=== PATIENT | female | born 1955 | race Asian ===

== ENCOUNTER 2016-08-30 11:01 | Inpatient (IN) | payer MEDICAID ==
[~2016-08-30] VITALS: Ht 152.4 cm; Wt 50.5 kg
[2016-08-30 11:42] LABS: BASOPHIL % 0.3 % (0-2)
[2016-08-30 12:03] LABS: ALBUMIN 3.5 g/dL (3.4-5.0); BILIRUBIN TOTAL 0.4 mg/dL (0.20-1.00); CALCIUM 8.5 mg/dL (8.5-10.1); CARBON DIOXIDE 22.4 mmol/L (21-32); CREATININE SERUM 1.3 mg/dL (0.6-1.0); POTASSIUM SERUM 3.4 mmol/L (3.5-5.1); T4(THYROXINE) 9.1 ug/dL (4.7-13.3); TOTAL PROTEIN, SERUM 7.7 g/dL (6.4-8.2)
[2016-08-30 12:04] LABS: RED CELL DISTRIBUTION WIDTH 12.5 % (11.5-14.5)
[2016-08-30 12:43] LABS: PLATELET COUNT 222 x10^3mcL (130-400)
[2016-08-30 12:57] LABS: UA SPECIFIC GRAVITY <=1.005 (1.005-1.035); microscopic required? YES; urine erythrocyte TRACE (NEGATIVE)
[2016-08-30] MEDS ORDERED: JANUVIA100 M1 PO (13:10)
[2016-08-30] MEDS ORDERED: LIPI10 PO (13:10)
[2016-08-30] MEDS ORDERED: AMARYL4 MG PO (13:10)
[2016-08-30] MEDS ORDERED: LISINOPRIL10 MG PO (13:10)
[2016-08-30] MEDS ORDERED: ASPIR LOW81 MG PO (13:11)
[2016-08-30] MEDS ORDERED: CALCIUM 500 MG1 EAC1 PO (13:11)
[2016-08-30] MEDS ORDERED: CALCIUM PO (13:12)
[2016-08-30 14:44] LABS: CHOLESTEROL/HDL RATIO 1.9
[2016-08-30 14:52] VITALS: BP 119/75
[2016-08-30 14:53] LABS: T3 TOTAL 0.99 ng/mL
[2016-08-30 14:55] LABS: MAGNESIUM 1.8 mg/dL (1.8-2.4); PHOSPHOROUS 2.9 mg/dL (2.5-4.9)
[2016-08-30 15:03] LABS: AMPHETAMINE QUAL UR NONE DETECTED (NEG <=1000)
[2016-08-30 15:16] LABS: FREE T4 1.36 ng/dL (0.76-1.46); T4(THYROXINE) 8.7 ug/dL (4.7-13.3)
[2016-08-30 21:10] VITALS: BP 127/68
[2016-08-31 06:01] LABS: BASOPHIL % 0.5 % (0-2); PLATELET COUNT 191 x10^3mcL (130-400); RED CELL DISTRIBUTION WIDTH 12.4 % (11.5-14.5)
[2016-08-31 06:04] VITALS: BP 100/52
[2016-08-31 06:16] LABS: CALCIUM 8.1 mg/dL (8.5-10.1); CARBON DIOXIDE 21.6 mmol/L (21-32); CREATININE SERUM 1.3 mg/dL (0.6-1.0); MAGNESIUM 1.7 mg/dL (1.8-2.4); PHOSPHOROUS 2.7 mg/dL (2.5-4.9); POTASSIUM SERUM 4.3 mmol/L (3.5-5.1)
[2016-08-31 10:35] VITALS: BP 118/62
[2016-08-31 13:35] VITALS: BP 137/52
[2016-08-31 18:00] VITALS: BP 132/79
[2016-08-31 22:04] VITALS: BP 129/76
[2016-09-01 05:51] VITALS: BP 112/52
[2016-09-01 06:19] LABS: BASOPHIL % 0.7 % (0-2); PLATELET COUNT 190 x10^3mcL (130-400); RED CELL DISTRIBUTION WIDTH 12.6 % (11.5-14.5)
[2016-09-01 06:57] LABS: BILIRUBIN TOTAL 0.2 mg/dL (0.20-1.00); CALCIUM 8.6 mg/dL (8.5-10.1); CARBON DIOXIDE 21.1 mmol/L (21-32); CREATININE SERUM 1.2 mg/dL (0.6-1.0); MAGNESIUM 1.5 mg/dL (1.8-2.4); PHOSPHOROUS 3.4 mg/dL (2.5-4.9); POTASSIUM SERUM 4.3 mmol/L (3.5-5.1); TOTAL PROTEIN, SERUM 6.2 g/dL (6.4-8.2)
[2016-09-01 07:01] LABS: ALBUMIN 2.6 g/dL (3.4-5.0)
[2016-09-01 10:19] VITALS: BP 143/63
[2016-09-01 11:57] VITALS: BP 143/63
== END 2016-09-01 12:12 | disposition home or self-care (01) | DRG 420 ==
LOC: ED 11:01 → DU 13:34 → MU 13:34 → DU 14:42 → MU 08-31 15:06
PROVIDERS: Emergency Medicine; Family Medicine; ADMIT Family Medicine
DX: E11.649 Type 2 diabetes mellitus with hypoglycemia without coma (principal); K76.0 Fatty (change of) liver, not elsewhere classified; E11.51 Type 2 diabetes mellitus with diabetic peripheral angiopathy without gangrene; I12.9 Hypertensive chronic kidney disease with stage 1 through stage 4 chronic kidney disease, or unspecified chronic kidney disease; N18.3 Chronic kidney disease, stage 3 (moderate); R55 Syncope and collapse; E11.65 Type 2 diabetes mellitus with hyperglycemia; E83.42 Hypomagnesemia; E87.6 Hypokalemia; D64.9 Anemia, unspecified; Z68.21 Body mass index [BMI] 21.0-21.9, adult; Z79.84 Long term (current) use of oral hypoglycemic drugs
CPT/HCPCS: 80307; 82962; 83880; 84439; J2405; J3490; J7030; J7042; Q0092